=== PATIENT | female | born 1945 | race Caucasian/White ===

== ENCOUNTER 2016-09-29 06:30 | Day surgery (SDC) | payer MEDICARE, OTHER ==
[~2016-09-29 06:30] MED LIST: AMOXICILLIN 50500 MG PO; AZITHROMYCIN250 MG PO; CALCIUM 500 W/V1 TAB PO; CIPRO 500MG TA500 MG PO; DICLOFENAC 50MG50 MG PO; DICLOFENAC SODI75 M4 PO; FAMOTIDINE 20MG20 MG PO; FLEXERIL10 MG PO; GABAPENTIN100 M1 PO; GLIPIZIDE 5MG TA5 MG PO; LIPITOR10 MG PO; LISINOPRIL 10MG10 MG PO; LOVENOX 3030 MG/0.1 IJ; METFORMIN1000 MG PO; NEURONTIN 100100 MG PO; NORVASC 10MG. T10 MG PO; ONGLYZA5 MG PO; TOPCARE OMEPRAZ20 MG PO; TYLENOL ES500 M1 PO; VICODIN 7.5/501 EACH PO; ZOLOFT100 M1 PO
--- NOTE | 2016-09-29 08:00 | Operative Note ---
Endoscopy Report Date: 09/29/16 Preoperative diagnosis: History of duodenal ulcer Procedure Type of procedure: Esophagogastroduodenoscopy with biopsies Indications: This is a 71-year-old white female. She was admitted in June with upper abdominal pain and underwent inpatient endoscopy on 06/16/16 which revealed a very large duodenal ulcer. Patient had done well after initiation of proton pump inhibitor therapy. Previous H. pylori serology was negative. She has been on Prilosec. Of note, she did have findings of gallstones during her hospital stay and this was felt to be incidental. Plan was made for follow-up endoscopy after 12 weeks of medical therapy with possible biopsies. Consent was obtained and patient was taken to same-day surgery endoscopy procedure room. She was positioned in a lateral decubitus position. Adequate intravenous sedation was achieved. Olympus endoscope was inserted via the oropharynx and advanced through the esophagus which appeared grossly normal. Stomach was cannulated and insufflated. Retroflexion revealed an extremely small hiatal hernia. There was mild nonerosive diffuse gastritis. Gastric antral mucosal biopsy was obtained for CLOtest for H. pylori. Pylorus was traversed. Within the duodenal bulb there was a very small tiny very superficial ulceration. This appeared to be virtually healed. Biopsy was obtained. Distal duodenum appeared unremarkable. Endoscope was withdrawn. Findings: Virtually completely healed ulceration in the duodenal bulb. Mild nonerosive diffuse gastritis Very small hiatal hernia Recommendations: I will have her return to the office for follow-up. Plan for H. pylori treatment if necessary, although unlikely. Continue proton pump inhibitors. As above, gallstones likely incidental. at [id number]
[2016-09-29 12:19] VITALS: BP 113/71
== END 2016-09-29 08:55 | disposition home or self-care (01) ==
LOC: SDC 06:30
PROVIDERS: Surgery
PROC: 0DB98ZX Excision of Duodenum, Via Natural or Artificial Opening Endoscopic, Diagnostic (ICD-10-PCS; 2016-09-29)
PROC: 0DB68ZX Excision of Stomach, Via Natural or Artificial Opening Endoscopic, Diagnostic (ICD-10-PCS; principal; 2016-09-29 07:30)
DX: Z09 Encounter for follow-up examination after completed treatment for conditions other than malignant neoplasm (principal); Z87.11 Personal history of peptic ulcer disease; K29.70 Gastritis, unspecified, without bleeding; K44.9 Diaphragmatic hernia without obstruction or gangrene; E11.9 Type 2 diabetes mellitus without complications

== ENCOUNTER → 2017-05-13 | Outpatient (CLI) | payer MEDICARE, OTHER ==
[~2017-05-13] MED LIST changes: +CILOSTAZOL100 M1; +DICLOFENAC 50MG50 MG; +NEURONTIN100 MG; +SUPER B-50 COM1 EACH; +TRAMADOL50 M1; +ZANTAC 150150 MG PO
[2017-05-13 07:59] LABS: BUN 19 mg/dL (7-18)
[2017-05-13 08:01] LABS: GFR (ESTIMATED) 34 ML/MIN (59-)
== END ==
LOC: RAD 07:41
PROVIDERS: Thoracic Surgery (Cardiothoracic Vascular Surgery)
DX: K73.9 Chronic hepatitis, unspecified (principal); I65.23 Occlusion and stenosis of bilateral carotid arteries

== ENCOUNTER → 2017-08-11 | Outpatient (CLI) | payer MEDICARE, OTHER ==
[~2017-08-11] MED LIST changes: +NORCO 325 MG-51 TAB PO
[2017-08-11 11:05] LABS: URINE BILIRUBIN - DIPSTICK NEGATIVE (NEG); URINE BLOOD NEGATIVE (NEG)
[2017-08-11 11:10] LABS: HEMOGLOBIN 11.3 g/dL (12.2-16.2); LYMPH # 1.5 K/mm3 (0.7-4.5); LYMPH % 20.6 % (10-50.0)
[2017-08-11 12:15] LABS: BUN 23 mg/dL (7-18); GFR (ESTIMATED) 26 ML/MIN (59-)
== END ==
LOC: LAB 10:21
PROVIDERS: Internal Medicine Nephrology
DX: N18.3 Chronic kidney disease, stage 3 (moderate) (principal); R82.90 Unspecified abnormal findings in urine